=== PATIENT | female | born 1940 | race Caucasian/White ===

== ENCOUNTER 2021-04-19 08:26 | Outpatient (REF) | payer MEDICARE, SELFPAY ==
[2021-04-19 09:01] LABS: MANUAL DIFF FLAG NO
[2021-04-19 09:11] LABS: Basophils Percent Auto 0.5 % (0-2); Eosinophils Absolute Auto 0.3 X10*3/uL (0.0-0.4); Eosinophils Percent Auto 4.9 % (0-4); Hematocrit 39.6 % (37-47); Hemoglobin 13.4 g/dl (12.0-16.0); Imm Gran Abs Auto 0.01 X10*3/uL (0.00-0.03); Imm Gran Pct Auto 0.2 % (0.0-0.4); Lymphocytes Absolute Auto 2.4 X10*3/uL (1.2-4.9); Lymphocytes Percent Auto 43.6 % (20-40); Mean Corpuscular HGB Conc 33.8 g/dl (31.0-35.0); Mean Corpuscular Hemoglobin 31.7 pg (27.0-33.0); Mean Corpuscular Volume 93.6 fL (80-98); Mean Platelet Volume 8.7 fL (9.4-12.3); Monocytes Absolute Auto 0.5 X10*3/uL (0.1-1.2); Monocytes Percent Auto 9.6 % (2-11); Neutrophils Absolute Auto 2.3 X10*3/uL (2.0-8.3); Neutrophils Percent Auto 41.2 % (45-73); Platelet Count 281 X10*3/uL (160-400); Red Blood Count 4.23 X10*6/uL (4.20-5.50); Red Cell Distribution Width 12.2 % (11.0-16.0); White Blood Count 5.5 X10*3/uL (4.8-10.8)
[2021-04-19 09:18] LABS: Estimated Average Glucose 108 mg/dL; Hemoglobin A1c % 5.4 %
[2021-04-19 09:26] LABS: Alanine Aminotransferase 17 U/L (0-31); Albumin Level 4.2 g/dL (3.5-5.0); Alkaline Phosphatase 113 U/L (39-117); Anion Gap 13 (12-20); Aspartate Amino Transferase 19 U/L (5-31); Bilirubin Total 0.6 mg/dL (0.0-1.0); Blood Urea Nitrogen 16 mg/dL (9-16); Calcium 9.9 mg/dL (8.4-10.2); Carbon Dioxide 31 mmol/L (22-29); Chloride 101 mmol/L (96-108); Cholesterol 316 mg/dL; Estimated Glomerular Filt Rate 58; Glucose Random 99 mg/dL (60-115); HDL Cholesterol 50 mg/dL; LDL Cholesterol Calculated 243 mg/dl; Potassium 3.7 mmol/L (3.3-5.1); Sodium 141 mmol/L (135-145); Total Protein 7.2 g/dL (6.5-8.0); Triglycerides 118 mg/dL
[2021-04-19 09:45] LABS: Thyroid Stimulating Hormone 3.41 uIU/mL (0.32-4.0); Vitamin D 25-OH Total 55.5 ng/mL (>30)
== END 2021-04-19 08:27 | disposition home or self-care (01) ==
LOC: HO.LAB 08:26
PROVIDERS: PCP Internal Medicine; Visit Provider Internal Medicine
DX: I10 Essential (primary) hypertension (principal); R53.82 Chronic fatigue, unspecified; K21.9 Gastro-esophageal reflux disease without esophagitis; E78.00 Pure hypercholesterolemia, unspecified; R73.01 Impaired fasting glucose; E55.9 Vitamin D deficiency, unspecified
CPT/HCPCS: 36415; 80053; 80061; 82306; 83036; 84443; 85025

== ENCOUNTER 2021-04-26 08:41 | Day surgery (SDC) | payer MEDICARE, SELFPAY ==
[2021-04-19 12:47] VITALS: BMI 28.5
--- NOTE | 2021-04-21 13:30 | MHC.SHP ---
Pre-Procedural Eval Section A Date of Service: 04/21/21 The patient is an INPATIENT: No The History & Physical has been completed within 30 days and I have reviewed it.: Yes Section B Chief Complaint: Cataract Left Eye Allergies: Allergies Allergy/AdvReac Type Severity Reaction Status Date / Time atorvastatin [From Lipitor] Allergy Intermediate Muscle Verified 04/19/21 12:44 cramps Iodinated Contrast Media Allergy Mild COUGH Unverified 06/18/20 15:41 [IV CONTRAST] Plan Diagnosis/Plan: Unchanged I have reviewed the history and physical and performed a pertinent physical examination on my patient. No changes have occurred unless specified.
--- NOTE | 2021-04-23 08:37 | P.CONAN_ITS ---
Documented by User: Leah Bette 04/23/21 08:38 HPI - Anesthesia Eval Consult details Narrative: 80yo F for Left Cataract Extraction IOL Insertion PCP cleared No previous cataract on record [facility] Past Medical History Medical History (Updated 04/19/21 @ 12:50 by Irais Pagan) Anxiety Arthritis Bursitis of both hips Depression GERD (gastroesophageal reflux disease) Low back pain Wears partial dentures Surgical History Surgical History (Updated 04/19/21 @ 12:46 by Irais Pagan) History of lumpectomy of left breast Hx of colonoscopy Social History Social History (Updated 04/19/21 @ 12:45 by Irais Pagan) Patient Tobacco Use Status: Never used Tobacco Are you DNR?: No Advance Directives: No Advance Directives Information Provided: No Advance Directives on File: No Meds Allergies Allergy/AdvReac Type Severity Reaction Status Date / Time atorvastatin [From Lipitor] Allergy Intermediate Muscle Verified 04/19/21 12:44 cramps Iodinated Contrast Media Allergy Mild COUGH Unverified 06/18/20 15:41 [IV CONTRAST] Home Medications Medication Instructions Recorded Confirmed Last Taken Type buspirone 1 tab PO TID 04/19/21 04/19/21 04/26/21 History gabapentin 600 mg PO TID 04/19/21 04/19/21 04/26/21 History hydrochlorothiazide 25 mg PO DAILY 04/19/21 04/19/21 Unknown History meloxicam [Mobic] 15 mg PO DAILY 04/19/21 04/19/21 Unknown History multivitamin 1 tab PO QAM 04/19/21 04/19/21 Unknown History omeprazole 20 mg PO DAILY 04/19/21 04/19/21 04/26/21 History potassium chloride 20 meq PO DAILY 04/19/21 04/19/21 Unknown History quetiapine 300 mg PO DAILY 04/19/21 04/19/21 04/26/21 History tizanidine 4 mg PO QID 04/19/21 04/19/21 04/26/21 History Exam Exam Date and Time: April 23, 2021 0837 Height,Weight and Vital Signs: Height 5 ft 4 in Weight 75.296 kg Narrative Narrative: Labs and EKG wnl per pcp clear Assessment and Plan Assessment Anesthesia Assessment: Chart Reviewed Documented by User: Esther Tavera 04/26/21 11:08 PMFSH Past Medical History Medical History (Updated 04/19/21 @ 12:50 by Irais Pagan) Anxiety Arthritis Bursitis of both hips Depression GERD (gastroesophageal reflux disease) Low back pain Wears partial dentures Surgical History Surgical History (Updated 04/19/21 @ 12:46 by Irais Pagan) History of lumpectomy of left breast Hx of colonoscopy Social History Social History (Updated 04/19/21 @ 12:45 by Irais Pagan) Patient Tobacco Use Status: Never used Tobacco Are you DNR?: No Advance Directives: No Advance Directives Information Provided: No Advance Directives on File: No Meds Allergies Allergy/AdvReac Type Severity Reaction Status Date / Time atorvastatin [From Lipitor] Allergy Intermediate Muscle Verified 04/19/21 12:44 cramps Iodinated Contrast Media Allergy Mild COUGH Unverified 06/18/20 15:41 [IV CONTRAST] Home Medications Medication Instructions Recorded Confirmed Last Taken Type buspirone 1 tab PO TID 04/19/21 04/19/21 04/26/21 History gabapentin 600 mg PO TID 04/19/21 04/19/21 04/26/21 History hydrochlorothiazide 25 mg PO DAILY 04/19/21 04/19/21 Unknown History meloxicam [Mobic] 15 mg PO DAILY 04/19/21 04/19/21 Unknown History multivitamin 1 tab PO QAM 04/19/21 04/19/21 Unknown History omeprazole 20 mg PO DAILY 04/19/21 04/19/21 04/26/21 History potassium chloride 20 meq PO DAILY 04/19/21 04/19/21 Unknown History quetiapine 300 mg PO DAILY 04/19/21 04/19/21 04/26/21 History tizanidine 4 mg PO QID 04/19/21 04/19/21 04/26/21 History Exam Airway Mallampati Class: II TM Dist: >3cm Neck ROM: Full Partial: Upper and Lower Loose/Missing/Broken Teeth: Yes Heart: RRR Lungs: CTA Assessment and Plan Assessment Anesthesia Assessment: Anesthesia Plan Discussed and Chart Reviewed Final Anesthetic Review NPO: Yes ASA Class: II Final Preanesthetic Review: Meds/Allgs Chart Reviewed, Consent Obtained/Reviewed and Anes Risks/Benef Reviewed Patient Risk: Low Procedure Risk: Low Anesthetic Plan Anesthetic Plan: MAC: Disposition: Standard PACU
[2021-04-26 10:23] VITALS: BP 160/86; PULSE 77; RESP 18; TEMP 36.3; O2SAT 96
[2021-04-26] MEDS: Tetracaine HCl/PF 0.5% Oph Sol 4 ML DROPS 1 DROP EYE-LEFT (10:26)
[2021-04-26] MEDS: Phenylephrine HCL 2.5% Oph SoL 2 ML BOTTLE 1 DROP EYE-LEFT ×3 (10:26→10:28)
[2021-04-26] MEDS: Lactated Ringers 500 ML 50 ML IV (10:26)
[2021-04-26] MEDS: Tropicamide 1 % Ophth Sol 3 ML BTL 1 DROP EYE-LEFT ×3 (10:27)
--- NOTE | 2021-04-26 11:41 | HO.PNOPHT ---
Ophthalmology Procedure Procedure Date of Service: 04/26/21 Ophthalmology Viscoelastic: Heallisa Duet Dual Pack Pro Ophthalmology Lenses: TECLYLE [id number] (17) Procedure Notes: PREOPERATIVE DIAGNOSIS: Decreased visual acuity left eye secondary to cataract POSTOPERATIVE DIAGNOSIS: Same PROCEDURE: Left cataract extraction with intraocular lens insertion SURGEON: Keith Castano M.D. ANESTHESIA: Topical/MAC ESTIMATED BLOOD LOSS: None COMPLICATIONS: None After obtaining informed consent, the patient was brought to the operation room suite and placed in the supine position. After adequate sedation per anesthesia, topical drops of Tetracaine were given to the left eye. The eye was then prepped and draped in the usual sterile fashion. The operating room microscope was then positioned over the operative eye and a lid speculum placed. A paracentesis was created. Viscoelastic was then instilled into the anterior chamber. A three plane incision was then created temporally, utilizing a 2.85 mm keratome. Capsulotomy forceps were then utilized to create a circular tear capsulotomy. Hydrodissection and hydrodelineation were carried out until adequate mobilization of the nucleus occurred. Phacoemulsification was then utilized to remove the dense central nucleus followed by removal of the cortical material utilizing the automated aspiration irrigation unit. Viscoat elastic was instilled into the posterior capsular bag followed by placement of a posterior chamber intraocular lens without difficulty. The residual Viscoat elastic was then removed utilizing the automated IA machine. The wound was check and found to be watertight. The patient tolerated the procedure well and the lid speculum was removed. Intracameral injection of Vigamox 0.1 mL followed by a subtenon injection of Kenalog-40 0.2 mL were administered. The patient will be seen in the a.m.
[2021-04-26 12:12] VITALS: BP 156/84; PULSE 75; RESP 16; TEMP 36.3; O2SAT 100
== END 2021-04-26 12:29 | disposition home or self-care (01) ==
PROVIDERS: PCP Internal Medicine; Visit Provider Ophthalmology
PROC: (CPT 66985; principal; 2021-04-26 11:50)
DX: H25.12 Age-related nuclear cataract, left eye (principal); H54.7 Unspecified visual loss; I10 Essential (primary) hypertension; Z79.899 Other long term (current) drug therapy; Z88.8 Allergy status to other drugs, medicaments and biological substances; Z91.041 Radiographic dye allergy status
CPT/HCPCS: 66984; J2250; J3010; J3300; V2632

== ENCOUNTER 2023-10-19 13:10 | Outpatient (REF) | payer MEDICARE, SELFPAY ==
[2023-10-19 16:13] LABS: MANUAL DIFF FLAG NO
[2023-10-19 16:21] LABS: Basophils Absolute Auto 0.1 X10*3/uL (0.0-0.2); Basophils Percent Auto 1.1 % (0-2); Eosinophils Absolute Auto 0.1 X10*3/uL (0.0-0.4); Hematocrit 37.4 % (37.0-47.0); Hemoglobin 12.8 g/dl (12.0-16.0); Imm Gran Abs Auto 0.01 X10*3/uL (0.00-0.03); Imm Gran Pct Auto 0.1 % (0.0-0.4); Immature Retic Fraction 6.8 % (3.0-15.9); Lymphocytes Absolute Auto 2.1 X10*3/uL (1.2-4.9); Lymphocytes Percent Auto 29.9 % (20-40); Mean Corpuscular HGB Conc 34.2 g/dl (31.0-35.0); Mean Corpuscular Hemoglobin 31.1 pg (27.0-33.0); Mean Corpuscular Volume 90.8 fL (80.0-98.0); Mean Platelet Volume 8.8 fL (9.4-12.3); Monocytes Absolute Auto 0.7 X10*3/uL (0.1-1.2); Monocytes Percent Auto 9.8 % (2-11); Neutrophils Percent Auto 57.1 % (45-73); Platelet Count 308 X10*3/uL (160-400); Red Blood Count 4.12 X10*6/uL (4.20-5.50); Red Cell Distribution Width 12.8 % (11.0-16.0); Retic HGB Equivalent 35.7 pg (30.0-35.0); Reticulocyte Percent 1.5 % (0.5-1.8); Reticulocytes Absolute 0.062 X10*6/uL (0.026-0.095)
[2023-10-19 16:56] LABS: Iron 78 mcg/dL (30-160); Percent Iron Saturation 31 % (15-50); Total Iron Binding Capacity 248 mcg/dL (228-428); Unsaturated Iron Binding 170 ug/dL
[2023-10-19 17:10] LABS: Ferritin 339 ng/mL (10-250)
== END 2023-10-19 13:11 | disposition home or self-care (01) ==
LOC: HO.HMGCLDS 13:10
PROVIDERS: PCP Internal Medicine; Visit Provider Internal Medicine
DX: D50.9 Iron deficiency anemia, unspecified (principal)
CPT/HCPCS: 36415; 82728; 83540; 85025; 85045